=== PATIENT | female | born 1980 | race Caucasian/White ===

== ENCOUNTER 2020-07-29 13:57 | Outpatient (REF) | payer OTHER, SELFPAY | END 2020-07-29 13:58 | disposition home or self-care (01) | LOC: HO.LAB 13:57 | PROVIDERS: PCP Internal Medicine; Visit Provider Internal Medicine | DX: Z20.828 Contact with and (suspected) exposure to other viral communicable diseases (principal) | CPT/HCPCS: C9803; U0003 ==

== ENCOUNTER 2025-04-05 11:02 | Outpatient (AMB) | payer OTHER, SELFPAY ==
--- OUTSIDE RECORDS SUMMARY | 2025-04-05 12:38 | XMS_ITS | Patient Health Record ---
Author Organization [facility] Address [address] [id number] Care Team Providers Care Record Changer Tester Name Role Phone [facility] Primary Care Provider Rica Garcia Unavailable [phone] Allergies No Known Allergies Results Component Value Reference Range Notes MR Breast Bilateral Reviewed date:02/15/2025 02:42:11 PM Interpretation: Performing Lab: Notes/Report: IMGEAP Reviewed date:08/28/2024 01:09:56 PM Interpretation: Performing Lab: Notes/Report: See Note [facility], a member of [facility] EXAMINATION: MRI BREAST WITHOUT AND WITH CONTRAST, BILATERAL CLINICAL INFORMATION: High risk screening. Family history of breast cancer. Estimated lifetime risk of developing breast cancer is greater than 20%. COMPARISON: Portions of previous MRI 07/06/2023 PREVIOUS MAMMOGRAPHY (Non-diagnostic monitor review): 12/20/2023 TECHNIQUE: Anatomic and fluid sensitive MR sequences were performed on a 3 Theodora platform system. Diffusion-weighted sequence was performed. A dynamic series was performed shortly before and after the IV administration of contrast. Subtracted imaging was reviewed. Color signal and kinetic analysis was performed on a dedicated software platform ([employer]) Imaging before and after the IV administration of contrast. Type of contrast: Dotarem Amount of contrast: 20 mL Volume of contrast discarded: 0 mL FINDINGS: FIBROGLANDULAR SIGNAL: There are scattered areas of fibroglandular signal BACKGROUND PARENCHYMAL ENHANCEMENT: There is a mild amount of background parenchymal enhancement SYMMETRY OF ENHANCEMENT: The background enhancement is symmetric RIGHT BREAST: There are no suspicious right breast findings Masses: There are no suspicious right breast masses Nonmass enhancement: There are no suspicious areas of nonmass enhancement within the right breast Enhancing foci: There are a few scattered nonspecific enhancing foci in the right breast. Other: There are no suspicious additional findings in the right breast Color signal and enhancement kinetics: There are no suspicious areas of color signal. There are no areas of washout kinetics LEFT BREAST: There are no suspicious left breast findings. Masses: There are no suspicious left breast masses. Nonmass enhancement: There are some unchanged small areas of nonmass enhancement in the outer left breast. Enhancing foci: There are several nonspecific enhancing foci similar to previous. Other: There are no other suspicious left breast findings Color signal and enhancement kinetics: There are no suspicious areas of color signal. The areas of nonmass enhancement in the nonspecific enhancing foci are subthreshold. There are no suspicious areas of washout kinetics VISUALIZED CHEST: AXILLA: There are no enlarged axillary lymph nodes VISUALIZED ABDOMEN: There are no suspicious findings in the visualized portions of the chest. There are no suspicious findings in the visualized portions of the abdomen IMPRESSION: No findings which are suspicious for breast cancer. No suspicious interval change Recommend annual high-risk screening in patients with an estimated lifetime risk of developing breast cancer greater than 20% ASSESSMENT: RIGHT BREAST: BI-RADS 1-negative LEFT BREAST: BI-RADS 2-benign RECOMMENDATIONS: Continue high risk screening -------- FINAL REPORT -------- Dictated By: Justino Rosen Dictated Date: 08/24/2024 12:50 ET Assigned Physician: Justino Rosen Reviewed and Electronically Signed By: Justino Rosen Signed Date: 08/24/2024 13:08 ET Workstation ID: [id number] Transcribed By: Self Edit Transcribed Date: 08/24/2024 12:50 ET Vitamin [id number] Reviewed date:01/10/2025 06:06:54 PM Interpretation: Performing Lab:Nikolai Pinon, [address] [facility], [place], Phone - [phone], Director - [place] Notes/Report: Vitamin B12 828 417-1615 pg/mL Immunofixation, Serum-[id number] Reviewed date:01/10/2025 06:06:55 PM Interpretation: Performing Lab:Marley [facility], [place], Phone - [phone], Director - [facility] Notes/Report: Immunofixation Result, Serum Polyclonal increase detected in one or more immunoglobulins. Immunoglobulin G, Qn, Serum 9233 117-0843 mg/d L Immunoglobulin A, Qn, Serum 338 87-352 mg/dL Immunoglobulin M, Qn, Serum 155 26-217 mg/dL Folate (Folic Acid), Serum-0 86090 Reviewed date:01/10/2025 06:06:55 PM Interpretation: Performing [facility], [address] [place] [address], Phone - [phone], Director - [facility] Notes/Report: Folate (Folic Acid), Serum >20.0 >3.0 ng/mL A serum folate concentration of less than 3.1 ng/mL is considered to represent clinical deficiency. Urinalysis, Complete-[id number] Reviewed date:01/10/2025 06:06:55 PM Interpretation: Performing Lab:[address], Phone - [phone], Director - [facility] Notes/Report: Specific [place] 1.010 1.005-1.030 pH 6.5 5.0-7.5 Urine-Color Yellow Yellow Appearance Clear Clear WBC Esterase 1+ Negative Protein Negative Negative/Trace Glucose Negative Negative Ketones Negative Negative Occult Blood Negative Negative Bilirubin Negative Negative Urobilinogen,Semi-Qn 0.2 0.2-1.0 mg/dL Nitrite, Urine Negative Negative Microscopic Examination See below: Micr oscopic was indicated and was performed. WBC 0-5 0 - 5 /hpf RBC 0-2 0 - 2 /hpf Epithelial Cells (non renal) 0-10 0 - 10 /hpf Casts None seen None seen /lpf Bacteria None seen None seen/Few CBC With Differential/Platel et-[id number] Reviewed date:01/10/2025 06:06:55 PM Interpretation: Performing Lab:[facility], [address] [place] [address], [place], Phone - [phone], Director - [facility] Notes/Report: WBC 5.5 3.4-10.8 x10E3/uL RBC 3.94 3.77-5.28 x10E6/uL Hemoglobin 13.2 11.1-15.9 g/dL Hematocrit 41.8 34.0-46.6 % MCV 106 79-97 fL MCH 33.5 26.6-33.0 pg MCHC 31.6 31.5-35.7 g/dL RDW 12.6 11.7-15.4 % Platelets 294 150-450 x10E3/uL Neutrophils 68 Not Estab. % Lymphs 23 Not Estab. % Monocytes 6 Not Estab. % Eos 2 Not Estab. % Basos 1 Not Estab. % Neutrophils (Absolute) 3.7 1.4-7.0 x10E3/uL Lymphs (Absolute) 1.2 0.7-3.1 x10E3/uL Monocytes(Absolute) 0.3 0.1-0.9 x10E3/uL Eos (Absolute) 0.1 0.0-0.4 x10E3/uL Baso (Absolute) 0.1 0.0-0.2 x10E3/uL Immature Granulocytes 0 Not Estab. % Immature Grans (Abs) 0.0 0.0-0.1 x10E3/uL Reticulocyte Count-[id number] Reviewed date:01/10/2025 06:06:55 PM Interpretation: Performing Lab:[facility], [address] [facility], Phone - [phone], Director - [place] Notes/Report: Reticulocyte Count 1.0 0.6-2.6 % Vitamin D, 76-Pyzdumg-[id number] Reviewed date:01/10/2025 06:06:55 PM Interpretation: Performing Lab:[facility], [address] [facility], Phone - [phone], Director - [place] Notes/Report: Vitamin D, 25-Hydroxy 40.9 30.0-100.0 ng/mL Vitamin D deficiency has been defined by the [place] of [employer] and an Endocrine Society practice guideline as a level of serum 25-OH vitamin D less than 20 ng/mL (1,2). The Endocrine Society went on to further define vitamin D insufficiency as a level between 21 and 29 ng/mL (2). 1. IOM ([place] of Medicine). 2010. Dietary reference intakes for calcium and D. [place]: The National Academies Press. 2. Benji MF, Sandra NC, Ynes CLAYTON, et al. Evaluation, treatment, and prevention of vitamin D deficiency: an Endocrine Society clinical practice guideline. JCEM. 2010; 96(7):1911-30. Comp. Metabolic Panel (14)-3 06610 Reviewed date:01/10/2025 06:06:55 PM Interpretation: Performing Lab:[facility] [place], [address] [facility], Phone - [phone], Director - [facility] Notes/Report: Glucose 87 70-99 mg/dL BUN 6 6-24 mg/dL Creatinine 0.98 0.57-1.00 mg/dL eGFR 73 >59 mL/min/1.73 BUN/Creatinine Ratio 6 9-23 Sodium 141 134-144 mmol/L Potassium 4.0 3.5-5.2 mmol/L Chloride 104 96-106 mmol/L Carbon Dioxide, Total 20 20-29 mmol/L Calcium 9.1 8.7-10.2 mg/dL Protein, Total 7.5 6.0-8.5 g/dL Albumin 4.5 3.9-4.9 g/dL Globulin, Total 3.0 1.5-4.5 g/dL Bilirubin, Total 0.5 0.0-1.2 mg/dL Alkaline Phosphatase 60 44-121 IU/L AST (SGOT) 24 0-40 IU/L ALT (SGPT) 16 0-32 IU/L LP+Non-HDL Cholesterol-59994 5 Reviewed date:01/10/2025 06:06:55 PM Interpretation: Performing Lab:[facility] [place], [address] [facility], Phone - [phone], Director - [facility] Notes/Report: Cholesterol, Total 193 100-199 mg/dL Triglycerides 66 0-149 mg/dL HDL Cholesterol 60 >39 mg/dL VLDL Cholesterol Familia 12 5-40 mg/dL LDL Chol Calc (NIH) 121 0-99 mg/dL Non-HDL Cholesterol 133 0-129 mg/dL Phosphatidylethanol (PEth)-7 03640 Reviewed date:01/10/2025 06:06:56 PM Interpretation: Performing Lab:[facility] [place], [facility], Phone - [phone], Director - [facility] Notes/Report: PHOSPHATIDYLETHANOL Positive Phosphatidylethanol (PEth) 45 Analyzed compound: PEth 16:0/18:1. 5-qelrnqfnr-1-oleoyl-sn- wzcmpgv-4-errafivwhvcqju . Analysis performed by Liquid Chromatography with Tandem Mass Spectrometry (LC/MS/MS). Detection limit: 20 ng/mL PEth levels in excess of 20 ng/mL are considered evidence of moderate to heavy ethanol consumption. However, the Center for Substance Abuse Treatment (CSAT) advises caution in interpretation and use of biomarkers alone to assess alcohol use. Results should be interpreted in the context of all available clinical and behavioral information. Reference: Substance Abuse and Mental Health Services Administration (2012). The Role of Biomarkers in the Treatment of Alcohol Use Disorders , 2012 Revision. Advisory, Volume 11, Issue 2. This test was developed and its performance characteristics determined by [employer]. It has not been cleared or approved by the Food and Drug Administration. HCV Antibody-[id number] Reviewed date:01/10/2025 06:06:56 PM Interpretation: Performing Lab:[facility], [address] [place] [address], [place], Phone - [phone], Director - [facility] Notes/Report: Hep C Virus Ab Non Reactive Non Reactive HCV antibody alone does not differentiate between previously resolved infection and active infection. Equivocal and Reactive HCV antibody results should be followed up with an HCV RNA test to support the diagnosis of active HCV infection. Reason For Referral No Information Medications Medication SIG (Take, Route, Frequency, Duration) Notes Start Date End Date Status Benadryl Active Triamcinolone Acetonide 0.1 % APPLY 1 APPLICATION EXTERNALLY TWICE A DAY; Duration: 30 Active Immunizations Vaccine Route Administration Date Status Comme nts *Tdap Unknown 09/05/2012 Administered *Tdap IM Intramuscular 12/07/2022 Administered Influenza-Afluria (IIV4) Unknown 07/10/2018 Administere d Influenza-Afluria (IIV4) Unknown 07/25/2019 Administere d Influenza-Afluria (IIV4) Unknown 07/15/2020 Administere d Td (adult) preservative free Unknown 11/14/2008 Administered Social History Tobacco Use: Social History Observation Description Date Details (start date - stop date) Never Smoker NA - NA AUDIT-C (Standard) Question Answer Notes Did you have a drink contain ing alcohol in the past year? Yes How often did you have six o r more drinks on one occasion in the past year? Never (0 point) How many drinks did you have on a typical day when you were drinking in the past year? 1 or 2 drinks (0 point) How often did you have a dri nk containing alcohol in the past year? 2 to 4 times a month (2 points) Points 2 Interpretation Negative Tobacco Control (Standard) Question Answer Notes Tobacco use: Nonsmoker Problems Problem Type SNOMED Code ICD Code Onset Dates Problem Status W/U Status Risk Notes Problem Megaloblastic anemia (25408791) Other megaloblastic anemias, not elsewhere classified (D53.1) Active confirmed Problem Vitamin D deficiency (51128309) Vitamin D deficiency, unspecified (E55.9) Active confirmed Problem Obesity due to excess calories (503416266) Other obesity due to excess calories (E66.09) Active confirmed Problem Anxiety disorder (081583672) Anxiety disorder, unspecified (F41.9) Active confirmed Problem Allergic rhinitis caused by pollen (disorder) (90334513) Allergic rhinitis due to pollen (J30.1) Active confirmed Problem Chronic sinusitis (06650288) Chronic sinusitis, unspecified (J32.9) Active confirmed Problem Irritant contact dermatitis caused by solvent (417264269) Irritant contact dermatitis due to solvents (L24.2) Active confirmed Problem Paresthesia (finding) (26262006) Paresthesia of skin (R20.2) Active confirmed Problem Family history of malignant neoplasm of breast (335683168) Family history of malignant neoplasm of breast (Z80.3) Active confirmed Problem Body mass index 30.00 to 34.99 (005021342012459) Body mass index [BMI] 31.0-31.9, adult (Z68.31) Active confirmed Problem Body mass index 30+ - obesity (747823241) Body mass index [BMI] 30.0-30.9, adult (Z68.30) Active confirmed Problem Body mass index 30.00 to 34.99 (520596291304793) Body mass index [BMI] 32.0-32.9, adult (Z68.32) Inactive confirmed Vital Signs Heart Rate 70 /min 03/21/2025 Temperature 97.5 degrees Fahrenheit 03/21/2025 Oximetry 96 % 03/21/2025 Height 63.5 in 03/21/2025 Weight 174 lbs 03/21/2025 BMI 30.34 kg/m2 03/21/2025 Encounters Encounter Location Date Provider Diagnosis [facility] [address] [id number] 12/19/2024 [facility] Encounter for genera l adult medical examination without abnormal findings Z00.00 ; Family history of malignant neoplasm of breast Z80.3 ; Other obesity due to excess calories E66.09 ; Body mass index [BMI] 30.0-30.9, adult Z68.30 ; Vitamin D deficiency, unspecified E55.9 ; Encounter for screening for malignant neoplasm of colon Z12.11 ; Encounter for screening mammogram for malignant neoplasm of breast Z12.31 ; Encounter for screening for osteoporosis Z13.820 ; Encounter for screening for cardiovascular disorders Z13.6 ; Encounter for immunization Z23 ; Encounter for antibody response examination Z01.84 ; Encounter for screening for other viral diseases Z11.59 and Other megaloblastic anemias, not elsewhere classified D53.1 [facility] MD [address] [id number] 03/21/2025 Rica Garcia Injury of ulnar nerv e at forearm level, left arm, initial encounter S54.02XA and Paresthesia of skin R20.2 [facility] [address] [id number] 05/26/2024 [facility] MD [address] [id number] 11/23/2024 [facility] MD [address] [id number] 03/21/2025 [facility] Assessments Encounter Date Diagnosis (ICD Code) Assessment Notes Treatment Notes Treatment Clinical Notes Section Notes 03/21/2025 Paresthesia of skin (ICD-10 - R20.2) See plan above.Discussed with patient her intermittent episodes of numbness and tingling in left forearm that I suspect is related to nerve involvement status post needle insertion with plasma donation on March 12. 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 Discussed with patient that if there is nerve involvement post needle insertion she may have a nerve sensation such as numbness and tingling for 3 to 6 months. Encouraged patient to wear compression sleeve and will complete a nerve test to see if there is a location of nerve involvement noted on EMG. Patient aware to follow-up with any new or worsening symptoms while we wait for nerve testing to be completed 12/19/2024 Encounter for general adult medical examination without abnormal findings (ICD-10 - Z00.00) General healthcare up-to-date. Check routine labs 12/19/2024 Family history of malignant neoplasm of breast (ICD-10 - Z80.3) Her calculated lifetime risk for breast cancer is 21%. Recommend continuing MRI and mammograms. 12/19/2024 Other obesity due to excess calories (ICD-10 - E66.09) Her weight is elevated. She says she is continues to exercise and is sleeping well and stress is not an issue. She does not count caloric intake and recommend that she count caloric intake and modulate her caloric intake by 5 to 10%. 12/19/2024 Body mass index [BMI] 30.0-30.9, adult (ICD-10 - Z68.30) Her BMI is elevated and recommend weight loss for BMI less than 30 12/19/2024 Vitamin D deficiency, unspecified (ICD-10 - E55.9) Fair level on prior labs reviewed. Recheck level to verify that there is no deficiency and would continue vitamin D supplementation for goal level of 30+ 12/19/2024 Encounter for screening for malignant neoplasm of colon (ICD-10 - Z12.11) No family history of colon cancer to warrant early colon cancer screening 12/19/2024 Encounter for screening mammogram for malignant neoplasm of breast (ICD-10 - Z12.31) Up-to-date on breast cancer screening 12/19/2024 Encounter for screening for osteoporosis (ICD-10 - Z13.820) No family history of osteoporosis or increased risk for premature osteoporosis to warrant early screening 12/19/2024 Encounter for screening for cardiovascular disorders (ICD-10 - Z13.6) Blood pressure stable. Can check for comorbidity of hyperlipidemia and hyperglycemia to further assess risk 12/19/2024 Encounter for immunization (ICD-10 - Z23) Vaccines up-to-date 12/19/2024 Encounter for antibody response examination (ICD-10 - Z01.84) Titers have been checked in the past and there is immunity to rubeola 12/19/2024 Encounter for screening for other viral diseases (ICD-10 - Z11.59) Can screen for hepatitis C as per general recommendation 12/19/2024 Other megaloblastic anemias, not elsewhere classified (ICD-10 - D53.1) Her MCV is elevated. Can check for nutritional deficiencies and bone marrow abnormalities as well as toxic effect of alcohol as the primary cause 12/19/2024 Other This note was created with voice dictation recognition software and may contain errors of grammar and syntax. Also labs were reviewed with patient. Plan Of Treatment Pending Test Test Name Order Date EMG/NCV 03/21/2025 25OH VITAMIN D 09/17/2020 COMPLETE CBC WITH DIFF 09/17/2020 COMPLETE CBC WITH DIFF 08/20/2019 COMPLETE URINALYSIS 09/17/2020 COMPLETE URINALYSIS 01/15/2017 COMPREHENSIVE METABOLIC PANEL 09/17/2020 FOLIC ACID 08/20/2019 HAPTOGLOBIN 08/20/2019 IMMUNOFIXATION SERUM 08/20/2019 LDH 08/20/2019 LIPID PANEL W REFLEX TO DLDL 09/17/2020 RBC FOLATE 03/18/2016 RETICULOCYTE COUNT 08/20/2019 VITAMIN B12 08/20/2019 VITAMIN B12 03/18/2016 MM Digital Mammo Screening 08/17/2019 B12 AND FOLATE PROFILE 09/23/2021 VITAMIN D, 25-HYDROXY 09/23/2021 MM Breast Bilat Complete Screen 08/17/19 20 Future Test Test Name Order Date MR Breast Bilateral 03/23/2022 MG MAMMO DIGITAL SCREENING BILAT 025 Next Appt Details Provider Name:Malachi Ledesma , 01/02/2026 08:30:00 AM, [address] [place] [address], [address], [place], [place], [phone], Insurance Providers Payer Name Payer Address Payer Phone Subscriber Number Group Number Insured Name Patient Relationship to Insured Coverage Start Date Coverage End Date [facility] [address] [address] [place] [phone] [id number] [phone] [id number] Kay Benedict Self - patient is the insured [facility] [address] [place] [address] [id number] Kay Benedict Self - patient is the insured Medical (General) History Medical History History ICD Code Zohkjeigy-pveilszqxotjjod-4802 Pityriasis versicolor Anxiety disorder, unspecified F41.9 Allergic rhinitis due to pollen J30.1 Chronic sinusitis, unspecified J32.9 Vitamin D deficiency, unspecified E55.9 Family history of malignant neoplasm of breast Z80.3 Surgical History Surgery Date(Month/Year) wisdom teeth extraction Hospitalization History Reason Date(Month/Year)
--- OUTSIDE RECORDS SUMMARY | 2025-04-05 12:38 | XMS_ITS | Clinical Summary ---
Author Organization [facility] Address [address] [place] [address] Phone Care Team Providers Care Peanut Sheller Name Role Phone Malachi Gregorio MD Primary Care Provider [phone] Social History Tobacco Use Types Packs/Day Years Used Date Smoking Tobacco: Never Assessed Comments Unknown Sex and Gender Information Value Date Recorded Sex Assigned at Female 03/08/2025 10:11 AM EDT Legal Sex Female 10:20 AM EST Gender Identity Female 03/08/2025 10:11 AM EDT Sexual Orientation Straight 03/08/2025 10 :11 AM EDT Last Filed Vital Signs Vital Sign Reading Time Taken Comments Blood Pressure - - Pulse - - Temperature - - Respiratory Rate - - Oxygen Saturation - - Inhaled Oxygen Concentration - - Weight 63.5 kg (140 lb) 08/24/2024 10:43 AM EST Height - - Body Mass Index - - Plan of Treatment Upcoming Encounters Date Type Department Care Team (Late st Contact Info) Description 04/30/2025 8:45 AM EDT [facility]ointment [facility] [address] [address] Health Maintenance Due Date Last Done Comments Hepatitis B Vaccines (1 of 3 - 19+ 3-dose series) 02/11/1999 Cervical Cancer Screening: Pap Smear 02/11/2001 Colorectal Cancer Screening: Colonoscopy 07/19/2022 HIV Screening 07/19/2022 Hepatitis C Screening 07/19/2022 Social Influencers of Health Screening 07/19/2022 COVID-19 Vaccine ( season) 2024 Depression Screening 08/16/2024 Influenza Vaccine (#1) 2025 0, 07/25/2019, 07/10/2018 Breast Cancer Screening 12/19/2025 12/20/19 24, 12/17/2022, 11/20/2021, Additional history exists DTaP,Tdap,and Td Vaccines (2 - Td or Tdap) 12/07/2032 12/07/2022 HIB Vaccines Aged Out No longer eligi ble based on patient's age to complete this topic HPV Vaccines Aged Out No longer eligi ble based on patient's age to complete this topic Hepatitis A Vaccines Aged Out No long er eligible based on patient's age to complete this topic IPV Vaccines Aged Out No longer eligi ble based on patient's age to complete this topic MMR Vaccines Aged Out No longer eligi ble based on patient's age to complete this topic Meningococcal ACWY Vaccine Aged Out N o longer eligible based on patient's age to complete this topic Meningococcal B Vaccine Aged Out No l onger eligible based on patient's age to complete this topic Pneumococcal Vaccine: Pediatrics (0 to 5 Years) and At-Risk Patients (6 to 49 Years) Aged Out No longer eligible based on patient's age to complete this topic RSV Immunization Patients Under 20 months Aged Out No longer eligible based on patient's age to complete this topic Varicella Vaccines Aged Out No longer eligible based on patient's age to complete this topic Procedures Procedure Name Priority Date/Time Associated Diagnosis Comments [facility] SCREENING DIGITAL Routine 12/20/2023 2:55 PM EDT Encounter for screening mammogram for malignant neoplasm of breast from Last 3 Months or Most Recently Relevant to Health Maintenance Results * [facility] SCREENING DIGITAL (12/20/2023 2:55 PM EDT) Anatomical Region Laterality Modality Mammography 12/20/2023 1:04 PM EDT Narrative 12/20/2023 2:55 PM EDT [facility] Diagnostic Imaging Department [address] [place] [address] Patient: LEXIS BAUTISTA /Age/Sex: 1980 - 43 - F Unit#: [id number] Location/Status: SPDIMAM/REG CLI Mnemonic/Ordering Site: [facility] [place] Ordering Physician: MALACHI GREGORIO MD [facility] Screening Digital - 12/20/23 - 1325 Report Status:Signed EXAM: [facility] Screening Digital EXAM DATE AND TIME: 12/20/2023 1:26 PM HISTORY: Screening. COMPARISON: 12/17/22, 11/20/21, 11/04/20 TECHNIQUE: Bilateral digital breast tomosynthesis was performed in the CC and MLO projections. Computer aided detection with [facility] 3D 3.1 was employed. TISSUE DENSITY: b. There are scattered areas of fibroglandular density. FINDINGS: No suspicious masses, grouped microcalcifications, or areas of architectural distortion are seen. The skin and vascularity are unremarkable. IMPRESSION: Stable mammographic appearance of the breasts. No evidence of malignancy is seen. A negative mammogram in the presence of a clinically suspicious palpable abnormality does not preclude the possibility of malignancy or alter the indications for biopsy. BI-RADS: Category 1: Negative RECOMMENDATION(S): 1: Routine screening mammogram BILATERAL in 1 year. Dictating Physician: KARINA BRINK MD Electronically Signed by: KARINA BRINK MD Dic Date/Time: 12/20/231453 Sign date/Time: 12/20/231454 Procedure Note Karina Brink MD - 04/03/2024 [facility] Diagnostic Imaging Department [address] [place], [place] [id number] Patient: LEXIS BAUTISTA /Age/Sex: 1980 - 43 - F Unit#: [id number] Location/Status: SPDIMAM/REG CLI Mnemonic/Ordering Site: [facility] [place] Ordering Physician: MALACHI GREGORIO MD [facility] Screening Digital - 12/20/23 - 1325 Report Status:Signed EXAM: [facility] Screening Digital EXAM DATE AND TIME: 12/20/2023 1:26 PM HISTORY: Screening. COMPARISON: 12/17/22, 11/20/21, 11/04/20 TECHNIQUE: Bilateral digital breast tomosynthesis was performed in the CCand MLO projections. Computer aided detection with [facility] 3D 3.1was employed. TISSUE DENSITY: b. There are scattered areas of fibroglandular density. FINDINGS: No suspicious masses, grouped microcalcifications, or areas ofarchitectural distortion are seen. The skin and vascularity are unremarkable. IMPRESSION: Stable mammographic appearance of the breasts. No evidence of malignancyis seen. A negative mammogram in the presence of a clinically suspicious palpable abnormality does not preclude the possibility of malignancy or alter the indications for biopsy. BI-RADS: Category 1: Negative RECOMMENDATION(S): 1: Routine screening mammogram BILATERAL in 1 year. Dictating Physician: KARINA BRINK MD Electronically Signed by: KARINA BRINK MD Dic Date/Time: 12/20/23 1453 Sign date/Time: 12/20/23 [id number] Malachi Gregorio MD IMG BI PROCEDURES Final Result from Last 3 Months or Most Recently Relevant to Health Maintenance Insurance [facility] Care Teams Peanut Sheller Relationship Specialty Start Date End Date Malachi Gregorio MD [address] [place] [id number] PCP - General Internal Medicine 03/22/25
--- OUTSIDE RECORDS SUMMARY | 2025-04-05 12:38 | XMS_ITS | Clinical Summary ---
Author Organization [facility] Address [address] [place] [id number] Phone Care Team Providers Care Automation Mechanic Name Role Phone Stanton Ledesma MD Primary Care Provider [phone] Medications Patient-supplied Immunotherapy as directed Acti ve CETIRIZINE HCL (ZYRTEC ORAL) Active Medication-Free Text Multivitamin Active LACTOBACILLUS ACIDOPHILUS (PROBIOTIC ORAL) Act ana Family History Medical History Relation Comments Diabetes mellitus Maternal Grandmother 2 Relation Status Comments Maternal Grandmother 1 Maternal Grandmother 2 Social History Tobacco Use Types Packs/Day Years Used Date Smoking Tobacco: Never Assessed Education Answer Date Recorded Are you interested in more education? Not on anatoly e 12/11/2022 Are you concerned about learning? Not on file 12/11/2022 No 12/11/2022 No 12/11/2022 Digital Access Answer Date Recorded No 01/11/2023 No 01/11/2023 Reliable internet access at home? Not on file 01/11/2023 Device with a working camera? Not on file Comments Unknown Sex and Gender Information Value Date Recorded Sex Assigned at Not on file Legal Sex Female 9:22 PM EDT Gender Identity Not on file Sexual Orientation Not on file Last Filed Vital Signs Vital Sign Reading Time Taken Comments Blood Pressure 110/66 09/17/2016 9:33 AM EST Pulse - - Temperature - - Respiratory Rate - - Oxygen Saturation - - Inhaled Oxygen Concentration - - Weight 80.3 kg (177 lb) 09/17/2016 9:33 AM EST Height 161.9 cm (5' 3.75 ) 09/17/2016 9:33 AM ES T Body Mass Index 30.62 09/17/2016 9:33 AM EST Plan of Treatment Not on file Medical Devices Not on file Care Teams Automation Mechanic Relationship Specialty Start Date End Date Stanton Ledesma MD [address] [place] [address] [email or web address] PCP - General 08/19/17 Additional Source Comments The information contained in this document represents components of the legal health record. It is not the complete legal health record.[facility]
== END 2025-04-05 13:47 | disposition home or self-care (01) ==
LOC: HO.HMGAL 11:02
PROVIDERS: PCP Internal Medicine; Visit Provider Registered Nurse Emergency
DX: J30.89 Other allergic rhinitis (principal)
CPT/HCPCS: 95117; 95165

== ENCOUNTER 2025-07-25 08:42 | Outpatient (AMB) | payer OTHER, SELFPAY | END 2025-07-25 08:42 | disposition home or self-care (01) | LOC: HO.HMGAL 08:42 | PROVIDERS: PCP Internal Medicine; Visit Provider Registered Nurse Emergency | DX: J30.89 Other allergic rhinitis (principal) | CPT/HCPCS: 95117; 95165 ==